=== PATIENT | male | born 1990 | race Caucasian/White ===

== ENCOUNTER 2018-12-14 06:29 | Day surgery (SDC) | payer OTHER ==
[2018-12-14] MEDS: LACTATED RINGER'S 1,000 ML IV (08:57)
[2018-12-14] MEDS ORDERED: CIPROFLOXACIN HCL OTIC DROP 0.25 ML (10:09)
[2018-12-14] MEDS ORDERED: PROPOFOL 20 ML (10:34)
[2018-12-14] MEDS ORDERED: FENTAnyl 50 MCG/ML VIAL (10:35)
[2018-12-14] MEDS: NEOMYC/POLYMYX/HC 10 ML OTIC SUSP (10:57)
[2018-12-14] MEDS ORDERED: LIDOCAINE 2% (SDV) 5 ML INJ (11:00)
[2018-12-14] MEDS ORDERED: EPHEDrine 25 MG/5 ML SYG IV (11:30)
[2018-12-14] MEDS ORDERED: ONDANSETRON 4 MG INJ IV (11:30)
[2018-12-14] MEDS ORDERED: OXYCODONE/ACETAMINOPHEN (5/325) TAB PO (11:30)
[2018-12-14] MEDS ORDERED: MIDAZOLAM 1 MG/ML 2 ML INJ IV (11:30)
[2018-12-14] MEDS ORDERED: hydrALAzine 20 MG INJ IV (11:30)
[2018-12-14] MEDS ORDERED: LABETALOL HCL 20MG INJ IV (11:30)
[2018-12-14] MEDS ORDERED: MEPERIDINE 25 MG INJ IV (11:30)
[2018-12-14] MEDS ORDERED: FENTAnyl 50 MCG/ML VIAL IV ×3 (11:30)
[2018-12-14] MEDS ORDERED: DIPHENHYDRAMINE 50 MG INJ IV (11:30)
[2018-12-14] MEDS ORDERED: ALBUTEROL 0.083% (NEB) 2.5 MG/3 ML AMP HHN (11:30)
[2018-12-14] MEDS: OXYCODONE/ACETAMINOPHEN (5/325) TAB PO (11:31)
== END 2018-12-14 13:10 | disposition home or self-care (01) ==
LOC: SDS 06:29
DX: H65.493 Other chronic nonsuppurative otitis media, bilateral (principal); H69.83 Other specified disorders of Eustachian tube, bilateral; H90.2 Conductive hearing loss, unspecified
CPT/HCPCS: 69436

== ENCOUNTER 2019-02-22 10:58 | Emergency (ER) | payer SELFPAY, OTHER | END 2019-02-22 12:57 | disposition left against medical advice (07) | LOC: E/R 10:58 → FTE 12:57 | DX: Z53.21 Procedure and treatment not carried out due to patient leaving prior to being seen by health care provider (principal) ==